=== PATIENT | male | born 1960 | race Caucasian/White ===

== ENCOUNTER 2017-09-02 19:19 | Emergency (ER) | payer MEDICAID, OTHER ==
[~2017-09-02] VITALS: Ht 177.8 cm; Wt 113.6 kg
[2017-09-02] MEDS ORDERED: DIAZEPAM 5 MG TABLET PO ONE (20:00)
[2017-09-02] MEDS ORDERED: KETOROLAC 30 MG/1 ML IM ONE (20:00)
[2017-09-02] MEDS ORDERED: KETOROLAC 30 MG/1 ML ONE (20:46)
[2017-09-02] MEDS ORDERED: DIAZEPAM 5 MG TABLET ONE (20:46)
[2017-09-02 22:44] VITALS: BP 136/92
== END 2017-09-02 22:46 | disposition home or self-care (01) ==
LOC: ED 22:29
DX: S39.012A Strain of muscle, fascia and tendon of lower back, initial encounter (principal); X58.XXXA Exposure to other specified factors, initial encounter; Y93.89 Activity, other specified; Y92.89 Other specified places as the place of occurrence of the external cause; Y99.8 Other external cause status
CPT/HCPCS: 72110; 96372; 99284; J1885

== ENCOUNTER 2017-09-13 11:24 | Emergency (ER) | payer MEDICAID ==
[~2017-09-13] VITALS: Ht 177.8 cm; Wt 118.2 kg
[2017-09-13 11:28] VITALS: BP 161/110
== END 2017-09-13 13:01 | disposition home or self-care (01) ==
LOC: ED 12:13
DX: L03.115 Cellulitis of right lower limb (principal); L03.116 Cellulitis of left lower limb; I10 Essential (primary) hypertension
CPT/HCPCS: 99283